=== PATIENT | female | born 1970 | race Hispanic/Latino ===

== ENCOUNTER 2019-11-27 05:42 | Observation (INO) | payer BC ==
[2019-11-26 13:29] LABS: BASOPHILS % (AUTO) 1.7 % (0.0-5.0); EOSINOPHILS % (AUTO) 2.5 % (0.0-8.0); HEMATOCRIT 40.5 % (36-48); LYMPHOCYTES % (AUTO) 21.9 % (21.0-51.0); MEAN CORPUSCULAR HGB CONC 33.3 g/dL (32.0-36.0); MEAN CORPUSCULAR VOLUME 87.1 fL (79-99); MONOCYTES % (AUTO) 7.3 % (3.0-13.0); NEUTROPHILS % (AUTO) 66.2 % (40.0-77.0); PLATELET COUNT (AUTO) 350 K/uL (130-400); RED BLOOD CELL COUNT(AUTO) 4.65 MIL/uL (4.00-5.50); RED CELL DISTRIBUTION WIDTH 12.5 % (11.0-15.5); WHITE BLOOD COUNT (AUTO) 7.7 K/uL (4.8-10.8)
[2019-11-26 15:16] VITALS: BP 129/80
[2019-11-27] VITALS (24 sets, daily range): BP systolic 103–136; BP diastolic 49–85
[~2019-11-27] VITALS: Ht 162.6 cm; Wt 92.6 kg
[~2019-11-27 05:42] MED LIST: CITA-107 PO; NORG1TAB87 PO; TOPI50TA24 PO
[2019-11-27] MEDS ORDERED: LACTATED RINGERS 1000ML 1,000 ML IV SCH (06:00)
[2019-11-27] MEDS ORDERED: CEFAZOLIN SODIUM 1 GM VIAL ONE (06:13)
[2019-11-27] MEDS ORDERED: KETAMINE 50MG/ML SYRINGE 50 MG/ML DISP.SYRIN IV ONE (07:33)
[2019-11-27] MEDS ORDERED: SUCCINYLCHOLINE CHLORIDE 20 MG/ML 10 ML VIAL ONE (07:35)
[2019-11-27] MEDS ORDERED: FENTANYL CITRATE PF 50 MCG/1 ML 2ML VIAL ONE (07:35)
[2019-11-27] MEDS ORDERED: LIDOCAINE PF 2% 5ML ABBOJECT ONE (07:35)
[2019-11-27] MEDS ORDERED: MIDAZOLAM HCL 1 MG/ML 2ML VIAL ONE (07:35)
[2019-11-27] MEDS ORDERED: ROCURONIUM 10MG/1ML SYR 10 MG/ML ML ONE (07:35)
[2019-11-27] MEDS ORDERED: PROPOFOL 10 MG/ML 20ML VIAL IV ONE (07:35)
[2019-11-27] MEDS ORDERED: GLYCOPYRROLATE 1 MG/5 ML SYRINGE ONE (07:53)
[2019-11-27] MEDS ORDERED: DEXAMETHASONE SOD PHOSPHATE 10MG/ML 1ML VIAL ONE (08:11)
[2019-11-27] MEDS ORDERED: DEXAMETHASONE SOD PHOSPHATE 4 MG/ML 1ML VIAL ONE (08:11)
[2019-11-27] MEDS ORDERED: NEOSTIGMINE 5MG/5ML SYR IV ONE (08:13)
[2019-11-27] MEDS ORDERED: ONDANSETRON HCL 4 MG/2 ML VIAL ONE (08:18)
[2019-11-27] MEDS ORDERED: SUGAMMADEX SODIUM 200 MG/2 ML VIAL IV ONE (09:14)
[2019-11-27] MEDS ORDERED: MEPERIDINE-PF 25 MG/ML SYG ONE ×2 (09:22→09:30)
[2019-11-27] MEDS ORDERED: PROMETHAZINE HCL 25 MG/ML 1ML AMPULE IM PRN ×2 (11:30)
[2019-11-27] MEDS ORDERED: IBUPROFEN 600 MG TABLET PO PRN (11:30)
[2019-11-27] MEDS ORDERED: BISACODYL 10 MG SUPP.RECT RC PRN (11:30)
[2019-11-27] MEDS ORDERED: MEPERIDINE-PF 75 MG/ML SYG IM PRN (11:30)
[2019-11-27] MEDS: ACETAMINOPHEN-CODEINE 300/30MG TAB PO PRN ×2 (11:44→20:21)
[2019-11-27] MEDS: DEXTROSE 5 %-0.45 % NACL 1,000 ML IV PRN ×2 (12:02→18:38)
--- NOTE | 2019-11-27 19:20 | NUR ---
ACTIVITY: Patient received with D5 !/2 NS infusing well regulated at 125 ml/hour. Oxygen inhalation via nasal Cannula at 2 L/min. Patient assisted to the bathroom to void. At 1935 patient back to bed verbalizes tat she wants to ambulate inside the room. Denies any pain. Plan of care discussed with patient verbalizes understanding.
[2019-11-27] MEDS: DOCUSATE SODIUM 100 MG CAP PO PRN (21:09)
[2019-11-27] MEDS: SIMETHICONE 80 MG TAB.CHEW PO PRN (21:09)
[2019-11-28] MEDS: DEXTROSE 5 %-0.45 % NACL 1,000 ML IV PRN (02:43)
[2019-11-28] MEDS: ACETAMINOPHEN-CODEINE 300/30MG TAB PO PRN (03:29)
[2019-11-28 03:42] VITALS: BP 117/65
[2019-11-28 05:43] LABS: HEMATOCRIT 35.4 % (36-48); MEAN CORPUSCULAR HEMOGLOBIN 29.4 pg (27.0-33.0); MEAN CORPUSCULAR HGB CONC 33.3 g/dL (32.0-36.0); MEAN CORPUSCULAR VOLUME 88.1 fL (79-99); RED BLOOD CELL COUNT(AUTO) 4.02 MIL/uL (4.00-5.50); RED CELL DISTRIBUTION WIDTH 12.4 % (11.0-15.5); WHITE BLOOD COUNT (AUTO) 14.6 K/uL (4.8-10.8)
[2019-11-28] MEDS ORDERED: CEFAZOLIN SODIUM 1 GM VIAL IVP SCH (06:00)
[2019-11-28 07:36] VITALS: BP 117/67
--- NOTE | 2019-11-28 08:30 | NUR ---
DR. ROCHE AT BEDSIDE ASSESSING AND TALKING TO PT. NEW ORDERS RECEIVED FOR DISCHARGE.
[2019-11-28] MEDS ORDERED: TOPIRAMATE 25 MG TABLET PO SCH (09:00)
[2019-11-28] MEDS ORDERED: CITALOPRAM 20 MG TABLET PO SCH (09:00)
[2019-11-28] MEDS: SIMETHICONE 80 MG TAB.CHEW PO PRN (09:11)
[2019-11-28] MEDS: DOCUSATE SODIUM 100 MG CAP PO PRN (09:11)
[2019-11-28 11:15] VITALS: BP 114/68
--- NOTE | 2019-11-28 14:00 | NUR ---
DISCHARGE PT LEFT UNIT VIA WHEELCHAIR, ACCOMPANIED BY SIGNIFICANT OTHER. DENIED PAIN AND HAD NO COMPLAINTS. TRANSPORTED BY PERSONAL VEHICLE.
[2019-11-28] MEDS ORDERED: NORGESTIMATE ETHINYL ESTRADIOL PO SCH (21:00)
== END 2019-11-28 14:10 | disposition home or self-care (01) ==
LOC: DAH 05:42 → WSH 05:43 → DAH 05:43 → WSH 10:20
PROVIDERS: ADMIT Obstetrics & Gynecology; ATTEND Obstetrics & Gynecology
DX: N92.1 Excessive and frequent menstruation with irregular cycle (principal); Z20.828 Contact with and (suspected) exposure to other viral communicable diseases; K46.9 Unspecified abdominal hernia without obstruction or gangrene
CPT/HCPCS: 36415 ×3; 58262; 58263; 84703; 85025; 85027; 86850; 86900; 86901; 96360; 96361; 96372; A4215; A4221; A4222; A4223; A4351; A4606; A4663; A4930; A6260; C9803; G0378 ×20; J0330; J0690; J1100 ×2; J2001; J2175 ×3; J2250; J2405; J2550; J2704; J2710; J3010; J3490 ×2; J7120 ×2; U0003

== ENCOUNTER 2021-12-03 15:10 | Emergency (ER) | payer OTHER ==
[~2021-12-03] VITALS: Ht 162.6 cm; Wt 91.2 kg
[2021-12-03] MEDS ORDERED: CYCLOBENZAPRINE HCL 10 MG TABLET PO ONE (16:00)
[2021-12-03] MEDS ORDERED: HYDROCODONE/ACETAMINOPHEN 10/325 MG TAB PO ONE (16:00)
[2021-12-03] MEDS ORDERED: KETOROLAC 60 MG VIAL (30MG/ML) IM ONE (16:00)
[2021-12-03] MEDS ORDERED: NAPR-1180 PO (18:25)
[2021-12-03] MEDS ORDERED: CYCL10TA16 PO (18:25)
[2021-12-03] MEDS ORDERED: TRAM1TAB2 PO (18:25)
[2021-12-03 18:48] VITALS: BP 127/65
== END 2021-12-03 18:59 | disposition home or self-care (01) ==
LOC: EDH 15:10
DX: S16.1XXA Strain of muscle, fascia and tendon at neck level, initial encounter (principal); S40.012A Contusion of left shoulder, initial encounter; S40.022A Contusion of left upper arm, initial encounter; Z79.899 Other long term (current) drug therapy; V49.49XA Driver injured in collision with other motor vehicles in traffic accident, initial encounter; Y93.89 Activity, other specified; Y92.413 State road as the place of occurrence of the external cause; Y99.8 Other external cause status
CPT/HCPCS: 99284; 72125; 73060; 73030; 96372; J1885

== ENCOUNTER → 2023-10-07 | Outpatient (CLI) | payer BC, SELFPAY ==
[~2023-10-07] MED LIST changes: +CYCL10TA16 PO; +NAPR-1180 PO; +TOPI-97 PO; -TOPI50TA24 PO; +TRAM1TAB2 PO
== END | disposition home or self-care (01) ==
LOC: RAH 15:45
PROVIDERS: ATTEND Family Medicine
DX: Z12.31 Encounter for screening mammogram for malignant neoplasm of breast (principal)
CPT/HCPCS: 77067

== ENCOUNTER 2023-12-04 10:02 | Emergency (ER) | payer BC ==
[~2023-12-04] VITALS: Ht 162.6 cm; Wt 93.0 kg
[2023-12-04 11:11] LABS: BILIRUBIN,URINE NEGATIVE (NEGATIVE); COLOR,URINE YELLOW (YELLOW); GLUCOSE, URINE (UA) NEGATIVE (NEGATIVE); KETONES,URINE NEGATIVE (NEGATIVE); LEUKOCYTE ESTERASE ,URINE NEGATIVE Leu/uL (NEGATIVE); NITRATE,URINE NEGATIVE (NEGATIVE); OCCULT BLOOD,URINE SMALL (NEGATIVE); PH,URINE 5.5 (5.0-8.0); PROTEIN,URINE 30 mg/dL (NEGATIVE); UROBILINOGEN,URINE 0.2 mg/dL (0.2-1.0)
[2023-12-04 11:14] LABS: ADD UA MICROSCOPIC YES; APPEARANCE,URINE HAZY (CLEAR)
[2023-12-04 11:16] LABS: MUCUS,URINE FEW LPF (None Seen); SQUAMOUS EPITHELIAL CELL,UR MOD /HPF (0-2); WBC,URINE 0-1 /HPF (0-1)
[2023-12-04 11:18] LABS: BASOPHILS # (AUTO) 0.11 K/uL (0.00-0.20); BASOPHILS % (AUTO) 1.2 % (0.0-5.0); EOSINOPHILS # (AUTO) 0.34 K/uL (0.00-0.70); EOSINOPHILS % (AUTO) 3.6 % (0.0-8.0); HEMATOCRIT 41.7 % (36-48); IMMATURE GRANULOCYTE ABSOLUTE 0.03 K/uL (0-1); LYMPHOCYTES # (AUTO) 1.5 K/uL (1.0-4.8); LYMPHOCYTES % (AUTO) 15.6 % (21.0-51.0); MEAN CORPUSCULAR HEMOGLOBIN 28.8 pg (27.0-33.0); MEAN CORPUSCULAR HGB CONC 33.8 g/dL (32.0-36.0); MEAN CORPUSCULAR VOLUME 85.1 fL (79-99); MONOCYTES # (AUTO) 1.1 K/uL (0.1-1.0); MONOCYTES % (AUTO) 12.2 % (3.0-13.0); NEUTROPHILS # (AUTO) 6.3 K/uL (1.8-7.7); NEUTROPHILS % (AUTO) 67.1 % (40.0-77.0); PLATELET COUNT (AUTO) 279 K/uL (130-400); RED CELL DISTRIBUTION WIDTH 12.5 % (11.0-15.5); WHITE BLOOD COUNT (AUTO) 9.4 K/uL (4.8-10.8)
[2023-12-04] MEDS: 0.9%NACL 1000ML 1,000 ML IV ONE (11:25)
[2023-12-04] MEDS: ketOROlac 30MG VIAL (30MG/ML) IVP ONE (11:25)
[2023-12-04] MEDS: DICYCLOMINE 20MG (10MG/ML) AMP IM ONE (11:25)
[2023-12-04 11:28] LABS: CREATININE 0.9 mg/dL (0.5-1.0); POTASSIUM 3.7 mmol/L (3.5-5.1)
[2023-12-04 11:32] LABS: ALBUMIN 3.5 g/dL (3.5-5.0); BILIRUBIN,DIRECT 0.1 mg/dL (0.0-0.3); BILIRUBIN,TOTAL 0.6 mg/dL (0.2-1.0); TOTAL PROTEIN, SERUM 7.6 g/dL (6.0-8.3)
[2023-12-04] MEDS ORDERED: DICY10 PO (13:28)
[2023-12-04 13:37] VITALS: BP 126/79; PULSE 95; RESP 20; TEMP 98.5; O2SAT 96
== END 2023-12-04 14:03 | disposition home or self-care (01) ==
LOC: EDH 10:02
DX: R10.11 Right upper quadrant pain (principal); K80.50 Calculus of bile duct without cholangitis or cholecystitis without obstruction; B34.9 Viral infection, unspecified; E66.9 Obesity, unspecified; Z79.899 Other long term (current) drug therapy; Z90.710 Acquired absence of both cervix and uterus
CPT/HCPCS: 99284; 96374; 76705; 96361; 80076; 84484; 80048; 83690; 85025; 81001; 36415; 93005; 96372; J7030; J1885; J0500